=== PATIENT | female | born 1965 | race Caucasian/White ===

== ENCOUNTER 2024-06-16 18:01 | Emergency (ER) | payer SELFPAY ==
[2024-06-16 19:06] VITALS: TEMP 97.9
--- NOTE | 2024-06-16 19:08 | ED ---
SOB HPI - General Source: patient, RN notes reviewed Mode of arrival: ambulatory Limitations: no limitations <ErikHéctor [email or web address] - Last Filed: 06/16/24 19:07> <Syeda Hall - Last Filed: 06/19/24 12:55> - General Chief Complaint: Shortness of Breath Stated Complaint: dizzy light headed posb gas exp Time Seen by Provider: 06/16/24 18:13 - History of Present Illness Initial Comments: Quick note: This is a 58-year-old female presenting with possible gas exposure. Patient states she began experiencing headache, lightheadedness, nausea and shaking around 1300 after possible exposure to a broken gas line for an unknown duration of time. Denies fever, chills, chest pain, significant dyspnea, hemoptysis, AMS, ALOC. (ErikGaurav) 58-year-old female presents to the emergency department reporting shortness of breath. States that she became lightheaded with a headache and short of breath around 1 PM after she was possibly exposed to broken gas time. She is concern for carbon monoxide exposure. Upon hospital arrival patient states that she already feels improved. She denies any chest pain. No fevers, chills or cough. No visual disturbance. No loss of consciousness. No additional symptoms to include abdominal pain, changes in her bowel or bladder habits. No numbness, tingling in her extremities. Patient does admit to a history of mild COPD. No other alleviating, precipitating modifying factors (Syeda Hall) - Related Data Allergies Allergy/AdvReac Type Severity Reaction Status Date / Time nerve block AdvReac Anaphylaxis Uncoded 06/16/24 19:07 Review of Systems ROS Other: All systems not noted in ROS Statement are negative. <Gaurav Valencia - Last Filed: 06/16/24 19:07> ROS Other: All systems not noted in ROS Statement are negative. <Syeda Hall - Last Filed: 06/19/24 12:55> ROS Statement: Those systems with pertinent positive or pertinent negative responses have been documented in the HPI. Past Medical History Past Medical History: Asthma, COPD History of Any Multi-Drug Resistant Organisms: None Reported Past Surgical History: Orthopedic Surgery, Tubal Ligation Additional Past Surgical History / Comment(s): abdominal surgery Past Psychological History: Anxiety, Depression Smoking Status: Former smoker Past Alcohol Use History: Occasional Past Drug Use History: None Reported <Gaurav Valencia - Last Filed: 06/16/24 19:07> General Exam Limitations: no limitations <Gaurav Valencia - Last Filed: 06/16/24 19:07> General appearance: alert, in no apparent distress Head exam: Present: atraumatic, normocephalic, normal inspection Eye exam: Present: normal appearance, PERRL, EOMI. Absent: scleral icterus, conjunctival injection, periorbital swelling ENT exam: Present: normal exam, mucous membranes moist Neck exam: Present: normal inspection. Absent: tenderness, meningismus, lymphadenopathy Respiratory exam: Present: normal lung sounds bilaterally. Absent: respiratory distress, wheezes, rales, rhonchi, stridor Cardiovascular Exam: Present: regular rate, normal rhythm, normal heart sounds. Absent: systolic murmur, diastolic murmur, rubs, gallop, clicks GI/Abdominal exam: Present: soft, normal bowel sounds. Absent: distended, tenderness, guarding, rebound, rigid Extremities exam: Present: normal inspection, full ROM, normal capillary refill. Absent: tenderness, pedal edema, joint swelling, calf tenderness Back exam: Present: normal inspection Neurological exam: Present: alert, oriented X3, CN II-XII intact Psychiatric exam: Present: normal affect, normal mood Skin exam: Present: warm, dry, intact, normal color. Absent: rash <Syeda Hall - Last Filed: 06/19/24 12:55> - General Exam Comments Initial Comments: Visual Physical Exam Vital signs reviewed General: Well-appearing, nontoxic, no acute distress. Head: Normocephalic, atraumatic Eyes: PERRLA, EOMI ENT: Airway patent Chest: Nonlabored breathing Skin: No visual rash, normal skin tone Neuro: Alert and oriented 3 Musculoskeletal: No gross abnormalities (Gaurav Valencia) Course Vital Signs 06/16/24 06/16/24 19:02 21:48 Temperature 97.9 F 97.9 F Pulse Rate 87 78 Respiratory 18 16 Rate Blood Pressure 135/90 126/82 O2 Sat by Pulse 95 99 Oximetry Medical Decision Making <Gaurav Valencia - Last Filed: 06/16/24 19:07> - Lab Data Result diagrams: 06/16/24 20:15 06/16/24 20:15 <Syeda Hall - Last Filed: 06/19/24 12:55> - Medical Decision Making I completed the quick note portion of this chart signed BRANDON Cosby (Gaurav Valencia) Was pt. sent in by a medical professional or institution ([facility], [facility], urgent care, hospital, or fci...) When possible be specific @ -No Did you speak to anyone other than the patient for history (EMS, parent, family, police, friend...)? What history was obtained from this source @ -No Did you review nursing and triage notes (agree or disagree)? Why? @ -I reviewed and agree with nursing and triage notes Were old charts reviewed (outside hosp., previous admission, EMS record, old EKG, old radiological studies, urgent care reports/EKG's, fci records)? Report findings @ -No old charts were reviewed Differential Diagnosis (chest pain, altered mental status, abdominal pain women, abdominal pain men, vaginal bleeding, weakness, fever, dyspnea, syncope, headache, dizziness, GI bleed, back pain, seizure, CVA, palpatations, mental health, musculoskeletal)? @ -Differential Dyspnea: Coronary syndrome, arrhythmia, tamponade, asthma, COPD, pulmonary embolism, pneumonia, pneumothorax, pulmonary effusion, anaphylaxis, diabetic ketoacidosis, flailed chest, pulmonary contusion, diaphragmatic rupture, anemia, neuromuscular, this is not meant to be an all-inclusive list. EKG interpreted by me (3pts min.). @ -Not done X-rays interpreted by me (1pt min.). @ -Yes and demonstrates no acute process CT interpreted by me (1pt min.). @ -None done U/S interpreted by me (1pt. min.). @ -None done What testing was considered but not performed or refused? (CT, X-rays, U/S, labs)? Why? @ -None What meds were considered but not given or refused? Why? @ -None Did you discuss the management of the patient with other professionals (professionals i.e. [facility] Negron, [employer], lab, RT, psych nurse, social media developer, student life vice president, teacher, aboriginal home school liaison officer, pillowcase turner)? Give summary @ -No Was smoking cessation discussed for >3mins.? @ -No Was critical care preformed (if so, how long)? @ -No Were there social determinants of health that impacted care today? How? (Homelessness, low income, unemployed, alcoholism, drug addiction, transportation, low edu. Level, literacy, decrease access to med. care, senior living, rehab)? @ -No Was there de-escalation of care discussed even if they declined (Discuss DNR or withdrawal of care, Hospice)? DNR status @ -No What co-morbidities impacted this encounter? (DM, HTN, Smoking, COPD, CAD, Cancer, CVA, ARF, Chemo, Hep., AIDS, mental health diagnosis, sleep apnea, morbid obesity)? @ -COPD Was patient admitted / discharged? Hospital course, mention meds given and route, prescriptions, significant lab abnormalities, going to OR and other pertinent info. @ -Arrival patient seen and evaluated in [facility]. Thorough history and physical exam was performed. Patient is not seen in an emergency room bed due to lack of capacity. She was agreeable to laboratory studies and a chest x-ray from the waiting room. This testing is performed. Carbon monoxide level is undetectable. I did discuss results with the patient and she is adamant that she wants to leave at this time. She is satisfied with her results and states that she feels that she is back to her baseline. Patient will be discharged home instructed follow-up with her primary care in 2 to 4 days. Return for any new or worsening symptoms. Patient agreeable plan was discharged in stable condition Undiagnosed new problem with uncertain prognosis? @ -No Drug Therapy requiring intensive monitoring for toxicity (Heparin, Nitro, Insulin, Cardizem)? @ -No Were any procedures done? @ -No Diagnosis/symptom? @ -Acute respiratory insufficiency, evaluation for carbon monoxide poisoning Acute, or Chronic, or Acute on Chronic? @ -Acute Uncomplicated (without systemic symptoms) or Complicated (systemic symptoms)? @ -Complicated Side effects of treatment? @ -No Exacerbation, Progression, or Severe Exacerbation? @ -No Poses a threat to life or bodily function? How? (Chest pain, USA, SC, pneumonia, PE, COPD, DKA, ARF, appy, cholecystitis, CVA, Diverticulitis, Homicidal, Suicidal, threat to staff... and all critical care pts) @ -No (Syeda Hall) - Lab Data Lab Results 06/16/24 06/16/24 06/16/24 Range/Units 20:15 20:15 20:15 WBC 6.4 (3.8-10.6) k/uL RBC 4.72 (3.80-5.40) m/uL Hgb 14.4 (11.4-16.0) gm/dL Hct 44.5 (34.0-46.0) % MCV 94.3 (80.0-100.0) fL MCH 30.6 (25.0-35.0) pg MCHC 32.4 (31.0-37.0) g/dL RDW 12.1 (11.5-15.5) % Plt Count 262 (150-450) k/uL MPV 8.1 Neutrophils % 69 % Lymphocytes % 22 % Monocytes % 5 % Eosinophils % 1 % Basophils % 0 % Neutrophils # 4.5 (1.3-7.7) k/uL Lymphocytes # 1.4 (1.0-4.8) k/uL Monocytes # 0.4 (0-1.0) k/uL Eosinophils # 0.1 (0-0.7) k/uL Basophils # 0.0 (0-0.2) k/uL Carbon Monoxide, Quant 1.8 (<10.0) % Sodium 139 (137-145) mmol/L Potassium 4.1 (3.5-5.1) mmol/L Chloride 106 (98-107) mmol/L Carbon Dioxide 24 (22-30) mmol/L Anion Gap 9 mmol/L BUN 11 (7-17) mg/dL Creatinine 0.69 (0.52-1.04) mg/dL Est GFR (CKD-EPI)AfAm >90 (>60 ml/min/1.73 sqM) Est GFR (CKD-EPI)NonAf >90 (>60 ml/min/1.73 sqM) Glucose 135 H (74-99) mg/dL Calcium 9.4 (8.4-10.2) mg/dL Total Bilirubin 0.5 (0.2-1.3) mg/dL AST 23 (14-36) U/L ALT 26 (4-34) U/L Alkaline Phosphatase 100 (38-126) U/L Total Protein 7.2 (6.3-8.2) g/dL Albumin 4.6 (3.5-5.0) g/dL Disposition <Gaurav Valencia - Last Filed: 06/16/24 19:07> Is patient prescribed a controlled substance at d/c from ED?: No Time of Disposition: 21:36 <Syeda Hall - Last Filed: 06/19/24 12:55> Clinical Impression: Shortness of breath Disposition: HOME SELF-CARE Condition: Stable Instructions (If sedation given, give patient instructions): Shortness of Breath (ED) Additional Instructions: Your labs were normal. Follow-up with your doctor in 2 to 4 days and return for any new or worsening symptoms Referrals: Candy Meek MD [Primary Care Provider] - 1-2 days
--- NOTE | 2024-06-16 20:06 | XR ---
EXAMINATION TYPE: XR chest 2V DATE OF EXAM: 06/16/2024 CLINICAL INDICATION: Female, 58 years old with history of Gas exposure, TECHNIQUE: Frontal and lateral views of the chest are obtained. COMPARISON: None FINDINGS: Underlying emphysematous change is not excluded. There is no focal air space opacity, pleu ral effusion, or pneumothorax seen. The cardiac silhouette size is within normal limits. The osseo us structures are intact. IMPRESSION: No acute cardiopulmonary process. [facility], , 06/16/2024 8:04 PM
[2024-06-16 20:44] LABS: Basophils % (A) 0 %; Eosinophils # (A) 0.1 k/uL (0-0.7); Eosinophils % (A) 1 %; HCT 44.5 % (34.0-46.0); HGB 14.4 gm/dL (11.4-16.0); Lymphocytes # (A) 1.4 k/uL (1.0-4.8); Lymphocytes % (A) 22 %; MCH 30.6 pg (25.0-35.0); MCHC 32.4 g/dL (31.0-37.0); MCV 94.3 fL (80.0-100.0); Mean Platelet Volume 8.1; Monocytes # (A) 0.4 k/uL (0-1.0); Monocytes % (A) 5 %; Neutrophils # (A) 4.5 k/uL (1.3-7.7); Neutrophils % (A) 69 %; Platelet Count 262 k/uL (150-450); RBC 4.72 m/uL (3.80-5.40); RDW 12.1 % (11.5-15.5); WBC 6.4 k/uL (3.8-10.6)
[2024-06-16 20:48] LABS: ALT 26 U/L (4-34); AST 23 U/L (14-36); African American GFR (CKD) >90 (>60 ml/min/1.73 sqM); Albumin 4.6 g/dL (3.5-5.0); Alkaline Phosphatase 100 U/L (38-126); Anion Gap 9 mmol/L; Blood Urea Nitrogen 11 mg/dL (7-17); Calcium 9.4 mg/dL (8.4-10.2); Carbon Dioxide 24 mmol/L (22-30); Chloride 106 mmol/L (98-107); Glucose 135 mg/dL (74-99); Non-African American GFR(CKD) >90 (>60 ml/min/1.73 sqM); Potassium 4.1 mmol/L (3.5-5.1); Sodium 139 mmol/L (137-145); Total Bilirubin 0.5 mg/dL (0.2-1.3); Total Protein 7.2 g/dL (6.3-8.2)
[2024-06-16 21:52] VITALS: BP 126/82; PULSE 78; RESP 16
== END 2024-06-16 21:54 | disposition home or self-care (01) ==
LOC: EC 18:01
DX: T58.11XA Toxic effect of carbon monoxide from utility gas, accidental (unintentional), initial encounter (principal); R06.02 Shortness of breath; J44.9 Chronic obstructive pulmonary disease, unspecified; Z87.891 Personal history of nicotine dependence; Z88.8 Allergy status to other drugs, medicaments and biological substances
CPT/HCPCS: 36415; 71046; 80053; 82375; 85025; 99285